=== PATIENT | female | born 2000 | race Caucasian/White ===

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

== ENCOUNTER 2022-05-14 13:50 | Emergency (ER) | payer OTHER ==
[~2022-05-14] VITALS: Ht 152.4 cm; Wt 59.0 kg
[~2022-05-14 13:50] MED LIST changes: +NAPROXEN SODIU550 M1 PO
[2022-05-14] MEDS ORDERED: NAPROXEN500 MG PO (18:46)
[2022-05-14] MEDS ORDERED: ZANAFLEX4 MG PO (18:46)
== END 2022-05-14 21:17 | disposition home or self-care (01) ==
LOC: ER 13:50
DX: S13.4XXA Sprain of ligaments of cervical spine, initial encounter (principal); V49.9XXA Car occupant (driver) (passenger) injured in unspecified traffic accident, initial encounter; Y93.9 Activity, unspecified; Y92.410 Unspecified street and highway as the place of occurrence of the external cause

== ENCOUNTER 2022-05-18 17:14 | Emergency (ER) | payer OTHER ==
[~2022-05-18] VITALS: Ht 152.4 cm; Wt 59.0 kg
[~2022-05-18 17:14] MED LIST changes: +NAPROXEN500 MG PO; +ZANAFLEX4 MG PO
== END 2022-05-18 23:49 | disposition home or self-care (01) ==
LOC: ER 17:14
DX: S29.9XXA Unspecified injury of thorax, initial encounter (principal); X58.XXXA Exposure to other specified factors, initial encounter; Y93.9 Activity, unspecified; Y92.9 Unspecified place or not applicable; Z88.2 Allergy status to sulfonamides; Z96.0 Presence of urogenital implants; R40.2412 Glasgow coma scale score 13-15, at arrival to emergency department